=== PATIENT | female | born 1960 | race Caucasian/White ===

== ENCOUNTER 2021-02-22 15:54 | Outpatient (CLI) | payer BC ==
[2021-02-22 19:09] LABS: #Basophils 0.1 10x3/uL (0.0-0.2); #Eosinphils 0.2 10x3/uL (0.0-0.5); #Monocytes 0.9 10x3/uL (0.0-1.1); #Neutrophils 3.4 10x3/uL (1.5-8.4); %Basophils 0.9 % (0.0-2.0); %Eosinophils 2.1 % (0.0-6.0); %Lymphocytes 35.4 % (18.0-47.0); %Monocytes 12.6 % (0.0-10.0); %Neutrophils 48.9 % (40.0-75.0); Mean Corpuscular HGB CONC 33.3 g/dL (32.0-36.0); Mean Corpuscular Hemoglobin 31.6 pg (27.0-33.0); Mean Corpuscular Volume 94.9 fl (81.6-98.3); Mean Platelet Volume 10.5 fl (7.4-10.4); Platelet Count 238 10x3/uL (150-450); RBC Distribution Width 12.8 % (11.5-14.5); Red Blood Cell (RBC) Count 4.11 10x6/uL (3.90-5.03)
== END 2021-02-22 15:55 | disposition home or self-care (01) ==
LOC: LABBT 15:54
PROVIDERS: ATTEND Orthopaedic Surgery
DX: Z01.812 Encounter for preprocedural laboratory examination (principal); S52.122A Displaced fracture of head of left radius, initial encounter for closed fracture
CPT/HCPCS: 85025

== ENCOUNTER 2021-02-24 08:35 | Day surgery (SDC) | payer BC, OTHER ==
[2021-02-23 10:57] VITALS: BMI 25.8
[2021-02-24] MEDS ORDERED: Fentanyl 100 MCG/2 ML VIAL ONE ×2 (09:21→09:32)
[2021-02-24] MEDS ORDERED: Midazolam HCl 2 mg/2 ml Vial ONE (09:32)
[2021-02-24] MEDS ORDERED: Ketorolac Tromethamine 30 MG/ML VIAL ONE (09:56)
[2021-02-24] MEDS ORDERED: PROPOFOL 200 MG/20 ML VIAL ONE (09:56)
[2021-02-24] MEDS ORDERED: ePHEDrine Sulfate 50 MG/10 ML VIAL ONE (09:56)
[2021-02-24] MEDS ORDERED: Ondansetron PF 4 MG/2 ML Vial ONE (09:56)
[2021-02-24] MEDS ORDERED: Dexamethasone 20 MG/5 ML VIAL ONE (09:56)
[2021-02-24] MEDS ORDERED: Lidocaine 1% PF 5 ML VIAL ONE (09:56)
[2021-02-24] MEDS ORDERED: Ropivacaine 0.5% HCl/PF (150 MG/30 ML VIAL) ONE (09:56)
[2021-02-24] MEDS ORDERED: traMADol HCl 50 MG TAB PO PRN ×2 (10:30)
[2021-02-24] MEDS ORDERED: Ondansetron PF 4 MG/2 ML Vial IVP PRN (10:30)
[2021-02-24] MEDS ORDERED: Promethazine HCl 25 MG/ML VIAL IM PRN (10:30)
[2021-02-24] MEDS ORDERED: Ropivacaine 0.2% 550 ML 550 ML NERVE BLCK SCH (10:30)
[2021-02-24] MEDS ORDERED: HYDROcodone/Acetaminophen 5/325 mg Tablet PO PRN ×2 (10:30)
[2021-02-24] MEDS ORDERED: Zolpidem Tartrate 5 MG TAB PO PRN (10:30)
[2021-02-24] MEDS ORDERED: Ketorolac Tromethamine 30 MG/ML VIAL IVP SCH (12:00)
[2021-02-24] MEDS ORDERED: HYDROcodone/Acetaminophen 5/325 mg Tablet ONE (13:30)
== END 2021-02-24 14:35 | disposition home or self-care (01) ==
LOC: SDC 08:35
PROVIDERS: ATTEND Orthopaedic Surgery
PROC: 3E0T3BZ Introduction of Anesthetic Agent into Peripheral Nerves and Plexi, Percutaneous Approach (ICD-10-PCS; principal; 2021-02-24)
PROC: 0PBJ0ZZ Excision of Left Radius, Open Approach (ICD-10-PCS; principal; 2021-02-24)
PROC: 0PSL04Z Reposition Left Ulna with Internal Fixation Device, Open Approach (ICD-10-PCS; principal; 2021-02-24)
PROC: 0MU407Z Supplement Left Elbow Bursa and Ligament with Autologous Tissue Substitute, Open Approach (ICD-10-PCS; principal; 2021-02-24)
DX: S52.122A Displaced fracture of head of left radius, initial encounter for closed fracture (principal); S42.132A Displaced fracture of coracoid process, left shoulder, initial encounter for closed fracture; G89.18 Other acute postprocedural pain; W01.0XXA Fall on same level from slipping, tripping and stumbling without subsequent striking against object, initial encounter
CPT/HCPCS: 76000; A4306; C1713; J0690; J1100; J1885; J2250; J2405; J2704; J2795; J3010

== ENCOUNTER 2021-09-19 10:47 | Outpatient (CLI) | payer BC | END 2021-09-19 10:48 | disposition home or self-care (01) | LOC: BICCT 10:47 | PROVIDERS: ATTEND Surgery | DX: M54.50 Low back pain, unspecified (principal); M71.30 Other bursal cyst, unspecified site; M47.816 Spondylosis without myelopathy or radiculopathy, lumbar region; M47.817 Spondylosis without myelopathy or radiculopathy, lumbosacral region; M43.16 Spondylolisthesis, lumbar region | CPT/HCPCS: 72110; 72131 ==